=== PATIENT | female | born 1960 | race Caucasian/White ===

== ENCOUNTER 2016-07-22 15:47 | Emergency (ER) | payer BC ==
[~2016-07-22] VITALS: Ht 165.1 cm; Wt 74.8 kg
[2016-07-22] MEDS ORDERED: ONDANSETRON 4MG/2ML VIAL (J2405) IV ONE (17:00)
[2016-07-22] MEDS ORDERED: NS 1,000 ML IV ONE (17:00)
[2016-07-22] MEDS ORDERED: MORPHINE 4 MG/ML 1ML SYRINGE IV ONE (17:15)
[2016-07-22 17:26] LABS: BASO % 0.1 % (0.0-1.0); EOS # 0.1 K/mm3 (0.0-0.50); EOS % 0.7 % (0.0-3.0); LARGE UNSTAINED CELL # 0.1 K/mm3 (0.0-0.4); LARGE UNSTAINED CELL % 0.4 % (0.0-4.0); LYMPH # 0.4 K/mm3 (1.5-4.5); LYMPH % 2.7 % (24.0-44.0); MEAN CORPUSCULAR HEMOGLOBIN 30.1 pg (27.0-33.0); MEAN CORPUSCULAR HGB CONC 32.7 g/dl (32.0-36.5); MONO # 0.6 K/mm3 (0.0-0.8); MONO % 4.2 % (0.0-5.0); NEUTROPHILS # 12.8 K/mm3 (1.8-7.7); PLATELET COUNT, AUTOMATED 188 k/mm3 (150-450); RED CELL DISTRIBUTION WIDTH 12.6 % (11.5-14.5); WHITE BLOOD COUNT 13.9 K/mm3 (4.0-10.0)
[2016-07-22 17:39] LABS: ALBUMIN/GLOBULIN RATIO 1.11 (1.00-1.93); ALKALINE PHOSPHATASE 280 U/L (45-117); ALT/SGPT 721 U/L (12-78); AMYLASE 47 U/L (25-115); ANION GAP 10 MEQ/L (8-16); AST/SGOT 260 U/L (15-37); BILIRUBIN,DIRECT 0.5 MG/DL (0.0-0.2); BILIRUBIN,TOTAL 1.3 MG/DL (0.2-1.0); BLOOD UREA NITROGEN 16 MG/DL (7-18); CALCIUM LEVEL 9.2 MG/DL (8.5-10.1); CARBON DIOXIDE LEVEL 26 MEQ/L (21-32); CHLORIDE LEVEL 106 MEQ/L (98-107); CREATININE FOR GFR 0.74 MG/DL (0.55-1.02); GLOMERULAR FILTRATION RATE > 60.0 (>51); GLUCOSE, FASTING 142 MG/DL (70-105); POTASSIUM SERUM 3.4 MEQ/L (3.5-5.1); SODIUM LEVEL 142 MEQ/L (136-145); TOTAL PROTEIN 7.6 GM/DL (6.4-8.2)
--- NOTE | 2016-07-22 18:28 | REP ---
Clinical: Status post cholecystectomy with right upper quadrant pain. Technique: Real time munguia scale ultrasound examination using curved array transducer. Findings: The patient is status post cholecystectomy and there is no evidence for intrahepatic biliary ductal dilatation. Common bile duct measures approximately 3 mm diameter. The liver is increased echogenicity suggesting fatty infiltration without focal hepatic lesion identified. Main portal vein is dilated to 16 mm and demonstrates normal hepatopetal flow. The pancreas is incompletely evaluated due to interposed bowel gas but visualized portions appear normal. The right kidney is normal in reniform shape without hydronephrosis and measures 11.9 x 6.5 x 4.9 cm. No ascites. Impression: Dilated main portal vein may represent portal hypertension. Otherwise normal right upper quadrant ultrasound. Evidence of prior cholecystectomy. Signed by Christopher Garrido MD 07/22/2016 06:19 P
[2016-07-22] MEDS ORDERED: ISOVUE-370 76% 100ML VIAL (Q9967) As Ordered ONE (19:12)
--- NOTE | 2016-07-22 19:49 | REP ---
Clinical: Right upper quadrant pain and elevated liver function tests. Technique: Axial contrast enhanced images from the lung bases to the pubic symphysis using 100 ml Isovue 370 intravenous contrast material with coronal and sagittal re-formations. Findings: Lung bases are clear. Visualized heart and pericardium normal. The patient appears to be status post cholecystectomy and evidence for prior enteric surgery suggesting partial resections and anastomoses. Compensatory biliary ductal dilatation is appreciated. Liver, spleen, pancreas, bilateral adrenal glands and kidneys are normal. The portal vein appears relatively normal by CT evaluation measuring up to 14 mm diameter and without findings to suggest portal venous hypertension. There is no evidence for bowel obstruction or acute inflammatory process. Normal terminal ileum and appendix identified in the right lower quadrant. Few scattered sigmoid diverticula noted without acute diverticulitis. Pelvis demonstrates normal bladder and age-appropriate uterus/adnexa. No ascites. No free air. No adenopathy. No mass lesion. Vasculature is grossly normal. Musculoskeletal structures demonstrate age-related changes without focal osseous abnormality. Impression: 1. Prior cholecystectomy with compensatory biliary ductal dilatation and otherwise normal right upper quadrant. 2. Evidence of prior enteric surgery without bowel obstruction or acute inflammatory process. 3. Few sigmoid diverticula without acute diverticulitis. 4. No free air, free fluid, mass lesion or adenopathy. Signed by Christopher Garrido MD 07/22/2016 07:40 P
[2016-07-22 20:04] VITALS: BP 123/65
[2016-07-22] MEDS ORDERED: ZOFR4TAB3 PO (20:04)
[2016-07-22] MEDS ORDERED: OMEP40CA2 PO (20:04)
--- NOTE | 2016-07-25 07:27 | ED PDOC ---
Post-Departure Follow-Up certified letter sent to pt re formal read of liver us. please ensure pt f/u w pcp. Charles Hairston MD July 25, 2016 07:27
== END 2016-07-22 20:32 | disposition home or self-care (01) ==
LOC: M ED 17:08
DX: R74.0 Nonspecific elevation of levels of transaminase and lactic acid dehydrogenase [LDH] (principal); D72.819 Decreased white blood cell count, unspecified; K57.90 Diverticulosis of intestine, part unspecified, without perforation or abscess without bleeding; A04.8 Other specified bacterial intestinal infections; R10.11 Right upper quadrant pain; Z90.49 Acquired absence of other specified parts of digestive tract; Z88.0 Allergy status to penicillin
CPT/HCPCS: 36415; 74177; 76705; 80048; 80076; 81001; 82150; 83605; 83690; 85025; 86705; 86709; 86803; 87040; 87077; 87086; 87186; 87340; 96361; 96374; 96375; 99284; J2405; Q9967

== ENCOUNTER → 2016-08-03 | Outpatient (REF) | payer BC ==
[~2016-08-03] MED LIST: OMEP40CA2 PO; ZOFR4TAB3 PO
[2016-08-03 07:49] LABS: INR 0.92
[2016-08-03 08:14] LABS: ALBUMIN 3.9 GM/DL (3.2-5.2); ALKALINE PHOSPHATASE 483 U/L (45-117); ALT/SGPT 541 U/L (12-78); ANION GAP 4 MEQ/L (8-16); AST/SGOT 225 U/L (15-37); BILIRUBIN,TOTAL 0.5 MG/DL (0.2-1.0); BLOOD UREA NITROGEN 17 MG/DL (7-18); CALCIUM LEVEL 9.2 MG/DL (8.5-10.1); CARBON DIOXIDE LEVEL 30 MEQ/L (21-32); CHLORIDE LEVEL 107 MEQ/L (98-107); CREATININE FOR GFR 0.64 MG/DL (0.55-1.02); GLOMERULAR FILTRATION RATE > 60.0 (>51); GLUCOSE, FASTING 111 MG/DL (70-105); IMMUNOGLOBULIN G 1070 MG/DL (681-1648); IMMUNOGLOBULIN M 183 MG/DL (40-230); PERCENT SATURATION 14.8 % (13.2-37.4); POTASSIUM SERUM 4.1 MEQ/L (3.5-5.1); SODIUM LEVEL 141 MEQ/L (136-145); TOTAL IRON BINDING CAPACITY 452 UG/DL (250-450); TOTAL PROTEIN 7.8 GM/DL (6.4-8.2)
[2016-08-04 08:45] LABS: HEPATITIS B SURFACE ANTIBODY NEGATIVE (POSITIVE)
[2016-08-08 00:06] LABS: ALPHA 1 ANTITRYPSIN 198 mg/dL (90-200); HEPATITIS C QUANTITATION HCV Not Detected IU/mL (.); SOLUBLE LIVER ANTIGEN IgG ABY 1.9 units (0.0-20.0)
== END ==
LOC: M LAB REF 06:57
PROVIDERS: ATTEND Specialist
DX: R94.5 Abnormal results of liver function studies (principal)